=== PATIENT | male | born 1960 | race Caucasian/White ===

== ENCOUNTER 2021-12-06 11:29 | Emergency (ER) | payer MEDICARE, OTHER | END 2021-12-06 14:30 | disposition home or self-care (01) | LOC: ER1 11:29 | DX: E11.649 Type 2 diabetes mellitus with hypoglycemia without coma (principal); I10 Essential (primary) hypertension; Z79.4 Long term (current) use of insulin | CPT/HCPCS: 82962; 99283 ==

== ENCOUNTER 2021-12-26 21:36 | Emergency (ER) | payer MEDICARE, OTHER ==
[2021-12-27 00:06] LABS: HEMOGLOBIN 13.2 gm/dl (14.0-17.5); RED BLOOD COUNT 4.71 M/UL (4.20-5.50); WHITE BLOOD COUNT 6.5 K/UL (4.5-11.0)
[2021-12-27 00:41] LABS: BUN/CREATININE RATIO 20 (0-10)
[2021-12-27] MEDS ORDERED: TAMIFLU 75 MG C75 MG PO (01:50)
== END 2021-12-27 02:09 | disposition home or self-care (01) ==
LOC: ER1 21:36
PROVIDERS: Emergency Medicine
DX: J10.1 Influenza due to other identified influenza virus with other respiratory manifestations (principal); E11.65 Type 2 diabetes mellitus with hyperglycemia; I11.9 Hypertensive heart disease without heart failure; Z20.822 Contact with and (suspected) exposure to COVID-19
CPT/HCPCS: 0240U; 71045; 80053; 81001; 82550; 82553; 83605; 83735; 84100; 84484; 85025; 87040; 87086; 93005; 96360; 99283